=== PATIENT | male | born 1990 | race American Indian/Alaskan Native ===

== ENCOUNTER 2020-09-05 22:25 | Emergency (ER) | payer SELFPAY ==
[2020-09-05 23:10] VITALS: BP 134/74
[2020-09-05] MEDS ORDERED: traMADol 50 MG TAB PO ONE (23:10)
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
== END 2020-09-06 00:18 | disposition home or self-care (01) ==
LOC: ED 22:25
DX: S39.012A Strain of muscle, fascia and tendon of lower back, initial encounter (principal); S16.1XXA Strain of muscle, fascia and tendon at neck level, initial encounter; Z88.0 Allergy status to penicillin; Z79.899 Other long term (current) drug therapy; V49.49XA Driver injured in collision with other motor vehicles in traffic accident, initial encounter; Y92.410 Unspecified street and highway as the place of occurrence of the external cause; Y93.89 Activity, other specified; Y99.8 Other external cause status
CPT/HCPCS: 99283